=== PATIENT | female | born 1975 | race Two or more races ===

== ENCOUNTER 2019-05-01 16:23 | Emergency (ER) | payer BC | END 2019-05-01 20:41 | disposition home or self-care (01) | LOC: FTE 20:41 | DX: S90.211A Contusion of right great toe with damage to nail, initial encounter (principal); W22.8XXA Striking against or struck by other objects, initial encounter; Y92.9 Unspecified place or not applicable | CPT/HCPCS: 73630; 73630-LT; 99283-25 ==